=== PATIENT | female | born 1955 | race Caucasian/White ===

== ENCOUNTER 2020-09-03 17:00 | Observation (INO) | payer OTHER ==
[~2020-09-03] VITALS: Ht 154.9 cm; Wt 44.0 kg
[2020-09-03 19:05] LABS: HEMOGLOBIN 14.5 gm/dl (12.3-15.3); RED BLOOD COUNT 5.1 M/UL (4.00-5.10); WHITE BLOOD COUNT 8.9 K/UL (4.5-11.0)
[2020-09-03 19:35] LABS: BUN/CREATININE RATIO 11 (0-10)
[2020-09-04] MEDS ORDERED: DILANTIN 100 M100 MG PO (09:53)
[2020-09-04] MEDS ORDERED: AMLODIPINE BESY10 MG PO (11:02)
[2020-09-04] MEDS ORDERED: ASPIRIN EC81 MG PO (11:02)
[2020-09-04] MEDS ORDERED: ATORVASTATIN CA40 MG PO (11:02)
[2020-09-04] MEDS ORDERED: CLOPIDOGREL75 MG PO (11:02)
[2020-09-04] MEDS ORDERED: LISINOPRIL40 MG PO (11:02)
[2020-09-04] MEDS ORDERED: CHLORTHALIDONE25 MG PO (11:10)
== END 2020-09-04 17:52 | disposition home or self-care (01) ==
LOC: ER1 17:00 → MED SURG 4 21:07 → CDU 21:07 → MED SURG 4 22:11
PROVIDERS: Preventive Medicine Occupational Medicine; ADMIT Internal Medicine
DX: I63.81 Other cerebral infarction due to occlusion or stenosis of small artery (principal); G81.94 Hemiplegia, unspecified affecting left nondominant side; R20.0 Anesthesia of skin; I16.0 Hypertensive urgency; I10 Essential (primary) hypertension; I35.8 Other nonrheumatic aortic valve disorders; E78.5 Hyperlipidemia, unspecified; Z85.3 Personal history of malignant neoplasm of breast; M51.36 Other intervertebral disc degeneration, lumbar region; E87.6 Hypokalemia; F17.210 Nicotine dependence, cigarettes, uncomplicated; Z79.899 Other long term (current) drug therapy; Z88.1 Allergy status to other antibiotic agents; Z20.822 Contact with and (suspected) exposure to COVID-19; Z90.710 Acquired absence of both cervix and uterus; Z85.43 Personal history of malignant neoplasm of ovary
CPT/HCPCS: ECHO; 70450; 70544; 70551; 71045; 80053; 82550; 82553; 83874; 84484; 85025; 85652; 86140; 93005; 93306; 93880; 99285; G0378; U0002